=== PATIENT | male | born 1945 | race Caucasian/White ===

== ENCOUNTER 2018-07-23 08:28 | Day surgery (SDC) | payer OTHER ==
[~2018-07-23] VITALS: Ht 172.7 cm; Wt 72.5 kg
== END 2018-07-23 10:46 | disposition home or self-care (01) ==
LOC: ORSCSDS 08:28
PROVIDERS: Internal Medicine Gastroenterology
PROC: 0DBN8ZX Excision of Sigmoid Colon, Via Natural or Artificial Opening Endoscopic, Diagnostic (ICD-10-PCS; principal; 2018-07-23 09:45)
DX: Z12.11 Encounter for screening for malignant neoplasm of colon (principal); K63.5 Polyp of colon; K64.8 Other hemorrhoids; K57.30 Diverticulosis of large intestine without perforation or abscess without bleeding; Z86.010 Personal history of colon polyps; Z87.891 Personal history of nicotine dependence
CPT/HCPCS: 88305; J2704; J7120

== ENCOUNTER 2021-07-20 08:15 | Day surgery (SDC) | payer OTHER ==
[~2021-07-20] VITALS: Ht 172.7 cm; Wt 72.1 kg
[~2021-07-20 08:15] MED LIST: EZETIMIBE10 M6 PO; LEVFLO500 PO; TAMSULOSIN HCL0.4 M1 PO; VALTREX PO
== END 2021-07-20 11:03 | disposition home or self-care (01) ==
LOC: ORSCSDS 08:15
PROVIDERS: Internal Medicine Gastroenterology
PROC: 0DBL8ZX Excision of Transverse Colon, Via Natural or Artificial Opening Endoscopic, Diagnostic (ICD-10-PCS; principal; 2021-07-20 09:30)
DX: Z12.11 Encounter for screening for malignant neoplasm of colon (principal); Z86.010 Personal history of colon polyps; D12.3 Benign neoplasm of transverse colon; K57.30 Diverticulosis of large intestine without perforation or abscess without bleeding; K64.8 Other hemorrhoids; Z79.899 Other long term (current) drug therapy
CPT/HCPCS: 88305; J2704; J7120

== ENCOUNTER → 2022-01-23 | Outpatient (CLI) | payer OTHER | LOC: LAB SHORT 08:20 → LAB 08:20 | DX: L08.9 Local infection of the skin and subcutaneous tissue, unspecified (principal) | CPT/HCPCS: 87070; 87205 ==

== ENCOUNTER 2022-04-21 05:57 | Day surgery (SDC) | payer OTHER ==
[~2022-04-21] VITALS: Ht 172.7 cm; Wt 74.4 kg
[~2022-04-21 05:57] MED LIST changes: +KETO15TC TOP; +VALA500 PO
--- NOTE | 2022-04-21 07:16 | NUR ---
Upon receiving a request for spiritual care from RN Client Architect Luciano, I visit the patient. Patient's spouse, Mary Ellen is bedside. Patient tells me about his upcoming surgery and his request for prayer. He tells me about his family and his mariana. I provide a presurgical prayer and a calming presence. Patient responded well and showed signs of reduced stress. I will continue to remain available to patient and family.
--- NOTE | 2022-04-21 08:08 | NUR ---
04/21/22 0808 [place] Fam PT TO OR WITH REDDENED SKIN/RASH ON MONS AREA.
--- NOTE | 2022-04-21 10:05 | NUR ---
REPORT RECEIVED FROM ROBERTO GARCIA RN. VSS. PT REPORTS ACHING ABDOMINAL PAIN 05/26. PT DENIES NAUSEA AT THIS TIME. PT REQUESTING PO FLUIDS AND TOLERATING THEM WELL. PT DRESSING C/D/I WITHOUT DRAINAGE, REDNESS, OR SWELLING. PT ABLE TO MOVE AND ADJUST HIMSELF IN BED. AT BEDSIDE.
--- NOTE | 2022-04-21 10:45 | NUR ---
Patient up to Ambulate independently. Gait steady. Discharge instructions reviewed with patient. Patient verbalizes understanding. Copy given to patient to take home. Dressing to procedure site clean, dry, intact with no visible drainage, swelling, erythema or bruising noted. Patient States Post-Procedure ride home has been arranged. Discharged via wheelchair to private car for ride home. PT BELONGINGS RETURNED TO PT.
== END 2022-04-21 22:54 | disposition home or self-care (01) ==
LOC: ORSCMMR 05:57 → ORD 07:30 → ORSCMMR 22:54
PROVIDERS: Surgery
PROC: 8E0W4CZ Robotic Assisted Procedure of Trunk Region, Percutaneous Endoscopic Approach (ICD-10-PCS; principal; 2022-04-21 07:30)
PROC: 3E0M45Z Introduction of Adhesion Barrier into Peritoneal Cavity, Percutaneous Endoscopic Approach (ICD-10-PCS; principal; 2022-04-21 07:30)
PROC: 0YUA4JZ Supplement Bilateral Inguinal Region with Synthetic Substitute, Percutaneous Endoscopic Approach (ICD-10-PCS; principal; 2022-04-21 07:30)
DX: K40.20 Bilateral inguinal hernia, without obstruction or gangrene, not specified as recurrent (principal); E78.5 Hyperlipidemia, unspecified; Z79.899 Other long term (current) drug therapy
CPT/HCPCS: 49650; S2900; C1781; J0690; J1100; J2370; J2405; J2704; J2795; J3010; J7120

== ENCOUNTER 2025-01-14 08:49 | Day surgery (SDC) | payer OTHER ==
[~2025-01-14] VITALS: Ht 175.3 cm; Wt 72.9 kg
[2025-01-14] MEDS ORDERED: NS 500 ML IV ONE (11:16)
[2025-01-14] MEDS ORDERED: Glycopyrrolate 0.2 MG/ML 1MLVIAL ONE (11:24)
[2025-01-14 12:04] VITALS: BP 110/82
== END 2025-01-14 11:56 | disposition home or self-care (01) ==
LOC: ORSCSDS 08:49
PROVIDERS: Internal Medicine Gastroenterology
PROC: 0DBL8ZX Excision of Transverse Colon, Via Natural or Artificial Opening Endoscopic, Diagnostic (ICD-10-PCS; principal; 2025-01-14 10:15)
PROC: 0DBP8ZX Excision of Rectum, Via Natural or Artificial Opening Endoscopic, Diagnostic (ICD-10-PCS; principal; 2025-01-14 10:15)
DX: Z12.11 Encounter for screening for malignant neoplasm of colon (principal); Z86.0101 Personal history of adenomatous and serrated colon polyps; D12.8 Benign neoplasm of rectum; D12.3 Benign neoplasm of transverse colon; K57.30 Diverticulosis of large intestine without perforation or abscess without bleeding; Z79.899 Other long term (current) drug therapy
CPT/HCPCS: 88305; J2704; J7120